=== PATIENT | female | born 1975 | race Caucasian/White ===

== ENCOUNTER → 2020-05-03 | Outpatient (CLI) | payer OTHER | END | disposition home or self-care (01) | LOC: RAD 13:47 | PROVIDERS: ATTEND Orthopaedic Surgery | DX: S82.62XA Displaced fracture of lateral malleolus of left fibula, initial encounter for closed fracture (principal); S82.892A Other fracture of left lower leg, initial encounter for closed fracture; M25.572 Pain in left ankle and joints of left foot; X58.XXXA Exposure to other specified factors, initial encounter; Y93.89 Activity, other specified; Y92.89 Other specified places as the place of occurrence of the external cause; Y99.8 Other external cause status ==

== ENCOUNTER 2020-06-06 14:54 | Inpatient (IN) | payer OTHER ==
[~2020-06-06] VITALS: Ht 154.9 cm; Wt 97.3 kg
--- NOTE | 2020-06-06 15:00 | NUR ---
US AT SHOWED A DVT IN LEFT LEG BEHIND THE KNEE. PT RECENTLY HAD SURGERY 3 WEEKS ON LEFT FIBULA. PT REPORTS HAVING SUDDEN SOB, RAPIN RR. PT IN BED WITH CONT SPO2 BP Q 30 MIN, SIDE RAILS UP X 2 CALL LIGHT IN REACH. FAMILY AT BEDSIDE.
[2020-06-06] MEDS ORDERED: methylPREDNISolone SOD SUCC 125 MG/2 ML ONE (15:25)
[2020-06-06] MEDS ORDERED: DIPHENHYDRAMINE 50 MG/ML, 1ML ONE (15:26)
[2020-06-06] MEDS ORDERED: DIPHENHYDRAMINE 50 MG/ML, 1ML IVPush ONE (15:30)
[2020-06-06] MEDS ORDERED: SODIUM CHLORIDE FLUSH 10ML SYR IVF ONE (15:30)
[2020-06-06] MEDS ORDERED: methylPREDNISolone SOD SUCC 125 MG/2 ML IV ONE (15:30)
[2020-06-06] MEDS ORDERED: SODIUM CHLORIDE 0.9% 1,000ML IVBOLUS ONE (15:30)
[2020-06-06 15:32] LABS: BASOPHILS # (AUTO) 0.07 x10^3/uL (0-0.1); BASOPHILS % (AUTO) 1 % (0-1); EOSINOPHILS # (AUTO) 0.11 x10^3/uL (0-0.4); EOSINOPHILS % (AUTO) 1 % (1-7); LYMPHOCYTES # (AUTO) 3.26 x10^3/uL (1-3.4); LYMPHOCYTES % (AUTO) 24 % (22-44); MD NO; MEAN CORPUSCULAR HEMOGLOBIN 30.1 pg (27.0-34.8); MEAN CORPUSCULAR HGB CONC 32.8 g/dL (32.4-35.8); MEAN PLATELET VOLUME 8.4 fL (7.4-10.4); MONOCYTES % (AUTO) 6 % (2-9); NEUTROPHILS # (AUTO) 9.34 x10^3/uL (1.8-6.8); NEUTROPHILS % (AUTO) 69 % (42-75); PLATELET COUNT 303 x10^3/uL (130-400); RED BLOOD COUNT 4.66 x10^6/uL (3.82-5.3); RED CELL DISTRIBUTION WIDTH 13.4 % (9.6-15.2)
[2020-06-06] MEDS ORDERED: HEPARIN 5,000 UNITS/ML, 1ML ONE (15:35)
[2020-06-06 15:37] LABS: ALANINE AMINOTRANSFERASE 35 U/L (12-78); ALBUMIN 3.3 g/dL (3.4-5.0); ANION GAP 8 mmol/L (5-15); CHLORIDE 109 mmol/L (98-107); CREATININE 1.21 mg/dL (0.55-1.02)
[2020-06-06 15:41] LABS: ALKALINE PHOSPHATASE 41 U/L (45-117); BILIRUBIN,TOTAL 0.3 mg/dL (0.2-1.0); TROPONIN I 0.055 ng/mL (0.000-0.045)
[2020-06-06] MEDS ORDERED: HEPARIN 5,000 UNITS/ML, 1ML IV PRN (16:00)
[2020-06-06] MEDS ORDERED: HEPARIN 5,000 UNITS/ML, 1ML IV ONE (16:00)
[2020-06-06] MEDS ORDERED: HEPARIN 25,000 UNITS/250ML PMX 250 ML IV PRN (16:00)
--- NOTE | 2020-06-06 16:52 | NUR ---
PT TO CT
[2020-06-06] MEDS ORDERED: OMNIPAQUE 350 MG/ML, 100ML BOTTLE ONE (17:19)
--- NOTE | 2020-06-06 17:25 | NUR ---
BACK FROM CT
[2020-06-06] MEDS ORDERED: FLUO40CA9 PO (18:31)
[2020-06-06] MEDS ORDERED: MONT10TA6 PO (18:31)
[2020-06-06] MEDS ORDERED: SUMA50TA4 PO (18:31)
[2020-06-06] MEDS ORDERED: DEXT10TA7 PO (18:31)
[2020-06-06] MEDS ORDERED: ALPR0.254 PO (18:31)
[2020-06-06] MEDS ORDERED: MIDAZOLAM 1 MG/ML, 2ML ONE ×2 (18:50→19:47)
[2020-06-06] MEDS ORDERED: HEPARIN 1,000 UNITS/ML, 10ML ONE (18:50)
[2020-06-06] MEDS ORDERED: LIDOCAINE 1%, 20ML ONE (18:50)
[2020-06-06] MEDS ORDERED: FENTANYL PF 100 MCG/2ML ONE ×2 (18:50→19:47)
[2020-06-06] MEDS ORDERED: POLYETHYLENE GLYCOL 17 GM PACKET PO PRN (19:00)
[2020-06-06] MEDS ORDERED: ONDANSETRON ODT 4 MG PO PRN (19:00)
[2020-06-06] MEDS ORDERED: BISACODYL 10 MG SUPP PR PRN (19:00)
[2020-06-06] MEDS ORDERED: ACETAMINOPHEN 325 MG TABLET PO PRN (19:00)
[2020-06-06] MEDS ORDERED: ALTEPLASE 1 MG/ML ONE ×2 (19:20→19:22)
--- NOTE | 2020-06-06 19:21 | NUR ---
Report given to Octavio MOONEY, chemical laboratory chief.
[2020-06-06] MEDS ORDERED: ALTEPLASE 10 MG in SODIUM CHLORIDE 0.9% 240 ML IV SCH (19:30)
[2020-06-06] MEDS ORDERED: SODIUM CHLORIDE FLUSH 3ML SYRINGE IVF PRN (20:30)
[2020-06-06] MEDS ORDERED: HYDROcodone/APAP 5/325 TABLET PO PRN (20:30)
[2020-06-06] MEDS ORDERED: MORPHINE SULFATE 4 MG/ML, 1ML IVPush PRN (20:30)
[2020-06-06] MEDS: SODIUM CHLORIDE 0.9% 1,000 ML IV SCH (20:37)
[2020-06-06 20:41] VITALS: BP 107/45
[2020-06-06] MEDS: FAMOTIDINE 20 MG TABLET PO SCH (21:15)
[2020-06-06 22:40] LABS: TROPONIN I 0.091 ng/mL (0.000-0.045)
[2020-06-06] MEDS: APIXABAN 5 MG TABLET PO SCH (23:35)
[2020-06-07 04:03] LABS: ALANINE AMINOTRANSFERASE 39 U/L (12-78); ALBUMIN 2.8 g/dL (3.4-5.0); ANION GAP 10 mmol/L (5-15); CALCIUM 8.7 mg/dL (8.5-10.1); CHLORIDE 110 mmol/L (98-107); FIBRINOGEN 414 mg/dL (200-340)
[2020-06-07 04:08] LABS: ALKALINE PHOSPHATASE 35 U/L (45-117); BILIRUBIN,TOTAL 0.4 mg/dL (0.2-1.0); CREATININE 1.02 mg/dL (0.55-1.02); TROPONIN I 0.049 ng/mL (0.000-0.045)
[2020-06-07 04:09] LABS: BASOPHILS # (AUTO) 0.02 x10^3/uL (0-0.1); BASOPHILS % (AUTO) 0 % (0-1); EOSINOPHILS % (AUTO) 0 % (1-7); LYMPHOCYTES # (AUTO) 1.01 x10^3/uL (1-3.4); LYMPHOCYTES % (AUTO) 9 % (22-44); MD NO; MEAN CORPUSCULAR HEMOGLOBIN 30.2 pg (27.0-34.8); MEAN CORPUSCULAR HGB CONC 32.6 g/dL (32.4-35.8); MEAN PLATELET VOLUME 8.4 fL (7.4-10.4); MONOCYTES # (AUTO) 0.02 x10^3/uL (0.2-0.8); MONOCYTES % (AUTO) 0 % (2-9); NEUTROPHILS # (AUTO) 10.19 x10^3/uL (1.8-6.8); NEUTROPHILS % (AUTO) 91 % (42-75); PLATELET COUNT 238 x10^3/uL (130-400); RED BLOOD COUNT 4.32 x10^6/uL (3.82-5.3); RED CELL DISTRIBUTION WIDTH 13.2 % (9.6-15.2)
[2020-06-07] MEDS: SUMATRIPTAN 50 MG TABLET PO SCH (08:59)
[2020-06-07] MEDS: SODIUM BICARBONATE 650 MG TABLET PO SCH ×2 (08:59→21:53)
[2020-06-07] MEDS: SENNA/DOCUSATE TABLET PO SCH (09:00)
[2020-06-07] MEDS: MONTELUKAST 10 MG TABLET PO SCH (09:01)
[2020-06-07] MEDS: APIXABAN 5 MG TABLET PO SCH ×2 (09:01→21:53)
[2020-06-07] MEDS: FLUOXETINE HCL 20 MG CAPSULE PO SCH (09:01)
[2020-06-07 09:02] LABS: BASOPHILS # (AUTO) 0.02 x10^3/uL (0-0.1); BASOPHILS % (AUTO) 0 % (0-1); EOSINOPHILS % (AUTO) 0 % (1-7); LYMPHOCYTES # (AUTO) 1.12 x10^3/uL (1-3.4); LYMPHOCYTES % (AUTO) 10 % (22-44); MD NO; MEAN CORPUSCULAR HEMOGLOBIN 29.9 pg (27.0-34.8); MEAN CORPUSCULAR HGB CONC 32.5 g/dL (32.4-35.8); MEAN PLATELET VOLUME 8.5 fL (7.4-10.4); MONOCYTES # (AUTO) 0.11 x10^3/uL (0.2-0.8); MONOCYTES % (AUTO) 1 % (2-9); NEUTROPHILS % (AUTO) 89 % (42-75); PLATELET COUNT 258 x10^3/uL (130-400); RED BLOOD COUNT 4.32 x10^6/uL (3.82-5.3); RED CELL DISTRIBUTION WIDTH 13.4 % (9.6-15.2)
[2020-06-07 09:05] LABS: FIBRINOGEN 370 mg/dL (200-340)
[2020-06-07] MEDS: FAMOTIDINE 20 MG TABLET PO SCH ×2 (10:41→21:53)
[2020-06-07 14:26] LABS: FIBRINOGEN 378 mg/dL (200-340)
[2020-06-07 14:43] LABS: MEAN CORPUSCULAR HEMOGLOBIN 30.5 pg (27.0-34.8); MEAN CORPUSCULAR HGB CONC 33.1 g/dL (32.4-35.8); PLATELET COUNT 254 x10^3/uL (130-400); RED BLOOD COUNT 4.29 x10^6/uL (3.82-5.3); RED CELL DISTRIBUTION WIDTH 13.2 % (9.6-15.2)
[2020-06-07 15:06] LABS: BASOPHILS # (AUTO) 0.01 x10^3/uL (0-0.1); BASOPHILS % (AUTO) 0 % (0-1); EOSINOPHILS % (AUTO) 0 % (1-7); LYMPHOCYTES # (AUTO) 1.07 x10^3/uL (1-3.4); LYMPHOCYTES % (AUTO) 7 % (22-44); MD SCAN; MONOCYTES # (AUTO) 0.47 x10^3/uL (0.2-0.8); MONOCYTES % (AUTO) 3 % (2-9); NEUTROPHILS # (AUTO) 13.56 x10^3/uL (1.8-6.8); NEUTROPHILS % (AUTO) 90 % (42-75)
[2020-06-07 20:00] VITALS: BP 118/85
[2020-06-07] MEDS: SODIUM CHLORIDE 0.9% 1,000 ML IV SCH (20:03)
[2020-06-08 03:25] VITALS: BP 120/82
[2020-06-08 06:02] LABS: BASOPHILS # (AUTO) 0.02 x10^3/uL (0-0.1); BASOPHILS % (AUTO) 0 % (0-1); EOSINOPHILS # (AUTO) 0.01 x10^3/uL (0-0.4); EOSINOPHILS % (AUTO) 0 % (1-7); LYMPHOCYTES # (AUTO) 2.98 x10^3/uL (1-3.4); LYMPHOCYTES % (AUTO) 20 % (22-44); MD NO; MEAN CORPUSCULAR HEMOGLOBIN 30.3 pg (27.0-34.8); MEAN CORPUSCULAR HGB CONC 32.5 g/dL (32.4-35.8); MEAN PLATELET VOLUME 8.9 fL (7.4-10.4); MONOCYTES # (AUTO) 0.79 x10^3/uL (0.2-0.8); MONOCYTES % (AUTO) 5 % (2-9); NEUTROPHILS # (AUTO) 10.96 x10^3/uL (1.8-6.8); NEUTROPHILS % (AUTO) 74 % (42-75); PLATELET COUNT 223 x10^3/uL (130-400); RED BLOOD COUNT 3.91 x10^6/uL (3.82-5.3); RED CELL DISTRIBUTION WIDTH 13.3 % (9.6-15.2)
[2020-06-08 06:11] LABS: ANION GAP 7 mmol/L (5-15); CALCIUM 8.7 mg/dL (8.5-10.1); CHLORIDE 110 mmol/L (98-107)
[2020-06-08 08:57] VITALS: BP 103/70
[2020-06-08] MEDS: SUMATRIPTAN 50 MG TABLET PO SCH ×2 (08:59→09:00)
[2020-06-08] MEDS: FLUOXETINE HCL 20 MG CAPSULE PO SCH (09:00)
[2020-06-08] MEDS: APIXABAN 5 MG TABLET PO SCH (09:00)
[2020-06-08] MEDS: MONTELUKAST 10 MG TABLET PO SCH (09:00)
[2020-06-08] MEDS: SENNA/DOCUSATE TABLET PO SCH (09:01)
[2020-06-08] MEDS: FAMOTIDINE 20 MG TABLET PO SCH (09:01)
[2020-06-08 09:45] LABS: MICROSCOPIC INDICATED
[2020-06-08] MEDS ORDERED: APIX5TAB PO ×4 (12:03→12:13)
== END 2020-06-08 13:05 | disposition home or self-care (01) | DRG 176 ==
LOC: ED 17:11 → EDIP 18:20 → CCU 20:30 → 5SO 06-07 09:34 → DCLOUNGE 06-08 12:52
PROVIDERS: ADMIT Internal Medicine; ATTEND Internal Medicine
PROC: 4A023N6 Measurement of Cardiac Sampling and Pressure, Right Heart, Percutaneous Approach (ICD-10-PCS; principal; 2020-06-06)
PROC: B31T1ZZ Fluoroscopy of Left Pulmonary Artery using Low Osmolar Contrast (ICD-10-PCS; 2020-06-06)
PROC: B31S1ZZ Fluoroscopy of Right Pulmonary Artery using Low Osmolar Contrast (ICD-10-PCS; 2020-06-06)
PROC: 3E05317 Introduction of Other Thrombolytic into Peripheral Artery, Percutaneous Approach (ICD-10-PCS; 2020-06-06)
DX: I26.92 Saddle embolus of pulmonary artery without acute cor pulmonale (principal); F84.5 Asperger's syndrome; I82.432 Acute embolism and thrombosis of left popliteal vein; D72.829 Elevated white blood cell count, unspecified; F12.90 Cannabis use, unspecified, uncomplicated; F32.9 Major depressive disorder, single episode, unspecified; F41.9 Anxiety disorder, unspecified; I27.20 Pulmonary hypertension, unspecified; J45.909 Unspecified asthma, uncomplicated; R00.0 Tachycardia, unspecified; R73.9 Hyperglycemia, unspecified; Z86.711 Personal history of pulmonary embolism; Z90.49 Acquired absence of other specified parts of digestive tract; Z88.0 Allergy status to penicillin; Z03.818 Encounter for observation for suspected exposure to other biological agents ruled out
CPT/HCPCS: 36415; 37211; J3490; 71045; 71275; 80048; 80053; 81001; 83036; 83880; 84484; 85025; 85384; 85520; 87081; 87086; 87635; 93005; 93306; 96374; 96375; 99156; 99291; C1769; C1894; G0378; J1644; J2250; J2997; J3010; Q9967; C1887; J1200; J2930; J7030

== ENCOUNTER 2020-07-06 17:13 | Emergency (ER) | payer OTHER ==
[~2020-07-06] VITALS: Ht 162.6 cm; Wt 97.4 kg
[~2020-07-06 17:13] MED LIST: ALPR0.254 PO; APIX5TAB PO; DEXT10TA7 PO; FLUO40CA9 PO; MONT10TA6 PO; SUMA50TA4 PO
[2020-07-06 17:32] VITALS: BP 128/78
--- NOTE | 2020-07-06 18:35 | NUR ---
[employer] HAND: PT FROM LOBBY TO ROOM AT THIS TIME
--- NOTE | 2020-07-06 19:56 | NUR ---
PT RESTING IN BED. UP FOR RECHECK AT THIS TIME. DENIES ANY NEEDS OR CONCERNS, CALL LIGHT IN REACH.
== END 2020-07-06 20:49 | disposition home or self-care (01) ==
LOC: ED 18:42
DX: I87.2 Venous insufficiency (chronic) (peripheral) (principal); R60.0 Localized edema; R07.89 Other chest pain; M79.662 Pain in left lower leg; Z86.718 Personal history of other venous thrombosis and embolism
CPT/HCPCS: 99284

== ENCOUNTER → 2020-08-16 | Outpatient (CLI) | payer OTHER | END | disposition home or self-care (01) | LOC: CFH 15:53 | PROVIDERS: ATTEND Physician Assistant Medical | DX: I27.20 Pulmonary hypertension, unspecified (principal) | CPT/HCPCS: 93306 ==

== ENCOUNTER → 2020-10-20 | Outpatient (CLI) | payer OTHER | END | disposition home or self-care (01) | LOC: CFH 15:35 | PROVIDERS: ATTEND Nurse Practitioner | DX: Z12.31 Encounter for screening mammogram for malignant neoplasm of breast (principal) | CPT/HCPCS: 77063; 77067 ==